=== PATIENT | female | born 1950 | race Caucasian/White ===

== ENCOUNTER 2016-09-10 15:08 | Inpatient (IN) | payer MEDICARE ==
[2016-09-14] MEDS ORDERED: HUMALOG MI100 UNIT/4 SQ (12:20)
[2016-09-14] MEDS ORDERED: COZAAR50 MG PO (12:20)
[2016-09-14] MEDS ORDERED: ASPIR 8181 MG PO (12:20)
[2016-09-14] MEDS ORDERED: TOPROL XL100 MG PO (12:20)
[2016-09-14] MEDS ORDERED: LASIX40 MG PO (12:21)
[2016-09-14] MEDS ORDERED: NORCO 5-325 TA1 EACH PO (12:21)
[2016-09-14] MEDS ORDERED: EFFEXOR XR150 MG PO (12:22)
[2016-09-14] MEDS ORDERED: CHLORHEXIDINE FL1 ML PO (12:22)
[2016-09-14] MEDS ORDERED: ACETAMINOPHEN325 MG PO (12:22)
[2016-09-14] MEDS ORDERED: CLOTRIMAZOLE10 MG PO (12:23)
[2016-09-14] MEDS ORDERED: CIPRO500 MG PO (12:23)
[2016-09-14] MEDS ORDERED: KEFLEX500 MG PO (12:24)
== END 2016-09-14 14:37 | disposition home or self-care (01) | DRG 699 ==
LOC: ER 15:08 → MED 17:19
PROVIDERS: ADMIT Internal Medicine
DX: T83.511A Infection and inflammatory reaction due to indwelling urethral catheter, initial encounter (principal); L03.115 Cellulitis of right lower limb; N18.4 Chronic kidney disease, stage 4 (severe); N39.0 Urinary tract infection, site not specified; B96.89 Other specified bacterial agents as the cause of diseases classified elsewhere; E11.65 Type 2 diabetes mellitus with hyperglycemia; K74.69 Other cirrhosis of liver; I12.9 Hypertensive chronic kidney disease with stage 1 through stage 4 chronic kidney disease, or unspecified chronic kidney disease; E11.22 Type 2 diabetes mellitus with diabetic chronic kidney disease; Z91.81 History of falling; Z90.49 Acquired absence of other specified parts of digestive tract; Z90.710 Acquired absence of both cervix and uterus; Z98.51 Tubal ligation status; Z79.84 Long term (current) use of oral hypoglycemic drugs; Z79.82 Long term (current) use of aspirin; Z79.4 Long term (current) use of insulin; Z79.899 Other long term (current) drug therapy; Z88.1 Allergy status to other antibiotic agents; Z88.2 Allergy status to sulfonamides; Z88.8 Allergy status to other drugs, medicaments and biological substances; Z83.3 Family history of diabetes mellitus; Z82.49 Family history of ischemic heart disease and other diseases of the circulatory system; Z87.891 Personal history of nicotine dependence; K05.10 Chronic gingivitis, plaque induced; R51 Headache; K12.0 Recurrent oral aphthae; N31.9 Neuromuscular dysfunction of bladder, unspecified
CPT/HCPCS: 36415; 97161-GP; 97165; J0696

== ENCOUNTER 2016-09-10 15:08 | Emergency (ER) | payer MEDICARE | END 2016-09-10 17:18 | disposition critical access hospital (66) | LOC: ER 15:08 | DX: E11.65 Type 2 diabetes mellitus with hyperglycemia (principal); N39.0 Urinary tract infection, site not specified; N17.9 Acute kidney failure, unspecified; E87.5 Hyperkalemia; K74.60 Unspecified cirrhosis of liver; I10 Essential (primary) hypertension; F32.9 Major depressive disorder, single episode, unspecified; Z90.49 Acquired absence of other specified parts of digestive tract; Z90.710 Acquired absence of both cervix and uterus; Z79.899 Other long term (current) drug therapy; Z79.84 Long term (current) use of oral hypoglycemic drugs; Z79.82 Long term (current) use of aspirin; Z88.8 Allergy status to other drugs, medicaments and biological substances; Z88.2 Allergy status to sulfonamides | CPT/HCPCS: 36415; 96361; 96374; 96375; J0696 ==

== ENCOUNTER 2016-10-04 17:54 | Emergency (ER) | payer MEDICARE ==
[~2016-10-04 17:54] MED LIST: ACETAMINOPHEN325 MG PO; ASPIR 8181 MG PO; CHLORHEXIDINE FL1 ML PO; CIPRO500 MG PO; CLOTRIMAZOLE10 MG PO; COZAAR50 MG PO; EFFEXOR XR150 MG PO; HUMALOG MI100 UNIT/4 SQ; KEFLEX500 MG PO; LASIX40 MG PO; NORCO 5-325 TA1 EACH PO; TOPROL XL100 MG PO
== END 2016-10-05 00:01 | disposition home or self-care (01) ==
LOC: ER 17:54
DX: I80.02 Phlebitis and thrombophlebitis of superficial vessels of left lower extremity (principal); E11.9 Type 2 diabetes mellitus without complications; I10 Essential (primary) hypertension; F32.9 Major depressive disorder, single episode, unspecified; F41.9 Anxiety disorder, unspecified; Z90.49 Acquired absence of other specified parts of digestive tract; Z90.710 Acquired absence of both cervix and uterus; Z88.2 Allergy status to sulfonamides; Z88.8 Allergy status to other drugs, medicaments and biological substances; Z79.899 Other long term (current) drug therapy; Z79.82 Long term (current) use of aspirin; Z79.4 Long term (current) use of insulin
CPT/HCPCS: 36415